=== PATIENT | male | born 1950 ===

== ENCOUNTER 2018-01-27 06:46 | Outpatient (CLI) | payer OTHER | END 2018-01-27 07:05 | disposition home or self-care (01) | LOC: LAB 06:46 | DX: K40.90 Unilateral inguinal hernia, without obstruction or gangrene, not specified as recurrent (principal); Z01.812 Encounter for preprocedural laboratory examination ==

== ENCOUNTER 2018-02-11 07:12 | Day surgery (SDC) | payer OTHER | END 2018-02-11 19:10 | disposition home or self-care (01) | LOC: CIR.AMB 07:12 | DX: K40.90 Unilateral inguinal hernia, without obstruction or gangrene, not specified as recurrent (principal) ==